=== PATIENT | male | born 1965 | race American Indian/Alaskan Native ===

== ENCOUNTER 2017-11-28 18:32 | Emergency (ER) | payer MEDICAID ==
--- NOTE | 2017-11-28 19:57 | ED PDOC ---
Arrival/HPI - General Time Seen by Provider: 11/28/17 19:51 Historian: Patient - History of Present Illness Narrative History of Present Illness (Text): 11/28/17 19:52 52 y/o male, no significant pmh, nkda, work as heavy lifting and fork lift machine, c/o lt. sided abdominal/lower back pain x 1-2 months with no fall or trauma. Aching pain, aggravated by lateral movement, no flank pain, no nausea or vomiting, no urinary symptoms, resolved with nsaids from alleve, no chest pain or shortness of breath, no palpitation, no rash, no other medical or psychological complaints. Past Medical History - Provider Review Nursing Documentation Reviewed: Yes - Psychiatric Hx Depression: No Hx Emotional Abuse: No Hx Physical Abuse: No - Suicidal Assessment Feels Threatened In Home Enviroment: No Family/Social History - Physician Review Nursing Documentation Reviewed: Yes Family/Social History: Unknown Family HX Allergies/Home Meds Allergies/Adverse Reactions: Allergies No Known Allergies Allergy (Verified 05/01/12 21:10) Home Medications: Home Meds Medication Instructions Recorded Confirmed No Known Home Med 05/01/12 05/01/12 Review of Systems - Review of Systems Constitutional: absent: Fatigue, Fevers Eyes: absent: Vision Changes ENT: absent: Hearing Changes Respiratory: absent: SOB, Cough Cardiovascular: absent: Chest Pain, Palpitations Gastrointestinal: absent: Abdominal Pain, Nausea, Vomiting Musculoskeletal: Back Pain, Myalgias. absent: Arthralgias, Neck Pain, Joint Swelling Skin: absent: Rash, Pruritis Neurological: absent: Headache, Dizziness Psychiatric: absent: Anxiety, Depression Physical Exam Vital Signs Temp Pulse Resp BP Pulse Ox 11/28/17 20:30 99.1 F 60 18 121/78 98 11/28/17 19:48 99.3 F 68 20 121/78 98 Pain Distress: Mild Mental Status: Positive for: Alert and Oriented X 3 - Systems Exam Head: Present: Atraumatic, Normocephalic Pupils: Present: PERRL Extroacular Muscles: Present: EOMI Conjunctiva: Present: Normal Mouth: Present: Moist Mucous Membranes Neck: Present: Normal Range of Motion Respiratory/Chest: Present: Clear to Auscultation, Good Air Exchange. No: Respiratory Distress, Accessory Muscle Use Cardiovascular: Present: Regular Rate and Rhythm, Normal S1, S2. No: Murmurs Abdomen: No: Tenderness, Distention, Peritoneal Signs Back: Present: Normal Inspection, Paraspinal Tenderness (+ttp on the lt. paraspinal and left latismus dorsi muscle region, no rash, no shingles rash, FROM without limitation but pain upon lateral movement, sensation intact, motor 5/5. ). No: CVA Tenderness, Midline Tenderness Upper Extremity: Present: Normal Inspection. No: Cyanosis, Edema Lower Extremity: Present: Normal Inspection. No: Edema Neurological: Present: GCS=15, CN II-XII Intact, Speech Normal, Motor Func Grossly Intact, Gait Normal, Memory Normal Skin: Present: Warm, Dry, Normal Color. No: Rashes Lymphatic: Present: Cervical Adenopathy Psychiatric: Present: Alert, Oriented x 3, Normal Insight, Normal Concentration Medical Decision Making ED Course and Treatment: 11/28/17 19:59 -labs/ua -CT abdomen and pelvis as he complaints abdominal pain to the RN -pt. took alleve prior to arrival -observe and reassess 11/28/17 21:14 -I was notify by the PROPERTY ANALYST Jeaneth that the patient eloped from the ER, went to the room and patient took all the belongings, will placed as elopement. - Medication Orders Current Medication Orders: Discontinued Medications Cyclobenzaprine HCl (Flexeril) 10 mg PO STAT STA Stop: 11/28/17 20:23 - PA / [employer] / Resident Statement / has reviewed & agrees with the documentation as recorded. Disposition/Present on Arrival - Present on Arrival Any Indicators Present on Arrival: No History of DVT/PE: No History of Uncontrolled Diabetes: No Urinary Catheter: No History of Decub. Ulcer: No - Disposition Have Diagnosis and Disposition been Completed?: Yes Diagnosis: Back pain, Abdominal pain Disposition: ELOPEMENT - ER ONLY Disposition Time: 20:00 Condition: GOOD Referrals: Autumn Marquez DO [Primary Care Provider] - Follow up with primary
[2017-11-28 20:04] VITALS: BMI 26.4
[2017-11-28 20:09] VITALS: BP 121/78; O2SAT 98
[2017-11-28 21:34] VITALS: PULSE 60; RESP 18; TEMP 99.1
== END 2017-11-28 20:30 | disposition left against medical advice (07) ==
LOC: ED 18:32
DX: R10.9 Unspecified abdominal pain (principal); M54.5 Low back pain